=== PATIENT | female | born 1995 | race Two or more races ===

== ENCOUNTER 2024-07-25 23:41 | Emergency (ER) | payer OTHER, SELFPAY ==
[2024-07-25 23:42] VITALS: BP 148/98; PULSE 103; RESP 18; TEMP 36.6; O2SAT 98; BMI 38.2
--- NOTE | 2024-07-25 23:55 | ED_ITS ---
Discharge Plan Disposition Patient Disposition: Home, Self-Care Activity Restrictions/Add. Instructions Additional Instructions/Restrictions: Please follow-up with your [facility] and or consider returning here or going to another ER if you change your mind about wanting further evaluation. Please return to the emergency department if you develop any new or worsening symptoms or become concerned for your health. Clinical Impressions Clinical Impression: Left lower quadrant pain Instructions Patient Instructions: DI for Acute Abdominal Pain Print Language Print Language: Arabic Discharge ED Provider: Can Garcia Adult HPI General Chief complaint: Abdominal Pain Stated complaint: Abd pain Time Seen by Provider: 07/25/24 23:47 Mode of Arrival: Wheelchair Source of Information: Patient Limitations: No Limitations Description of Symptoms (Recalled from ER Triage Doc. by RN): Patient states she has been having LLQ abd pain since this morning, which is getting worse. States she took perc 10 around 7pm. States she has PCOS, Endometriosis. Also states she was dx with intermediate torsion x2 weeks ago. She is unsure of where she was diagnosed because she moved here from [place]. History of Present Illness HPI narrative: 28-year-old female with reported history of prior ovarian torsion, PCOS, endometriosis, Lara-Danlos syndrome, possible inflammatory bowel condition, dissociative identity disorder presents for left lower quadrant pain. She reports that it started this morning and is severe. It was not improved with Tylenol and Percocet 10 at home this evening. She reports that she has had torsion within the last few weeks but she does not member exactly when it happened. She also reports that she does not remember where the surgery happened, nor who the operating surgeon was. After some extended discussion, patient reports that she has dissociative identity disorder and she does not remember a lot of her medical care because she dissociates when she gets ill. Related Data Allergies Allergy/AdvReac Type Severity Reaction Status Date / Time adhesive Allergy Blister Verified 07/25/24 23:55 amoxicillin (From Augmentin) Allergy Rash Verified 07/25/24 23:55 clavulanic acid (From Allergy Rash Verified 07/25/24 23:55 Augmentin) diphenhydramine (From Allergy Rash Verified 07/25/24 23:55 Benadryl) Penicillins Allergy Rash Verified 07/25/24 23:[address] [facility] Disclaimer: The information contained in this section may have been updated after the patient was seen, as this information can be updated by other users. Social History Smoking Status: Never smoker alcohol intake: never current occupational status: other details: Unknown Travel in the last 8 weeks: None ROS Obtained: Yes All systems reviewed & no additional complaints except as documented Physical Exam General General appearance: alert, anxious and obese Head Head exam: atraumatic and normocephalic Eye Eye exam: Present normal appearance, PERRL and EOMI ENT ENT exam: Present normal oropharynx and normal external ear exam Neck Neck exam: Present normal inspection and full ROM Chest Chest inspection: Present normal inspection and symmetric chest wall rise; Absent tenderness Respiratory Respiratory exam: Present normal lung sounds bilaterally; Absent respiratory distress Cardiovascular Cardiovascular exam: Present regular rate and normal rhythm Abdominal Exam Abdominal exam: Present soft and tenderness (Right lower quadrant/pelvic); Absent distention or guarding Extremities Exam Extremities exam: Present normal inspection; Absent edema or joint swelling Back Exam Back exam: Present normal inspection; Absent tenderness Neurological Exam Neurological exam: Present alert and oriented X3; Absent motor sensory deficit Psychiatric Psychiatric exam: Present normal affect and normal mood Skin Skin exam: Present warm, dry and normal color Lymphatic Lymphatic Findings: no adenopathy Medical Decision Making Medical Records Medical records reviewed: Yes I reviewed the patient's medical records. Screening: Per USPSTF and CDC recommendations, given the prevalence of disease in our region, it is our hospital?s policy to screen for HIV and viral Hepatitis for all patients aged 18 and over and those with ongoing risk factors. Rob Inquiry Pt receiving controlled substance: No Rob was queried for this patient: No Vital Signs: 07/25/24 23:42 07/26/24 01:41 07/26/24 02:02 Temperature 97.9 F Temperature Source Oral Pulse Rate 104 H 110 H Pulse Rate [Right Radial] 103 H Respiratory Rate 18 Blood Pressure 166/90 H 168/95 H Blood Pressure [Right Arm] 148/98 H Blood Pressure Mean 115 108 Blood Pressure Mean [Right Arm] 114 Blood Pressure Source [Right Arm] Automatic Cuff Blood Pressure Position [Right Arm] Supine 02 Sat by Pulse Oximetry 98 99 96 Oxygen Delivery Method Room Air Lab Data Lab results reviewed: Yes I reviewed the patient's lab results. Lab Results 07/26/24 00:59: Urine Color Yellow, Urine Appearance Clear, Urine pH 6.0, Ur Specific [place] 1.025, Urine Protein Negative, Urine Glucose (UA) 3+, Urine Ketones Trace, Urine Blood 1+ A, Urine Nitrate Negative, Urine Bilirubin Negative, Urine Urobilinogen 0.2, Ur Leukocyte Esterase Negative, Urine RBC 5- 10, Urine WBC 3-5, Ur Squamous Epith Cells 5-10, Urine Bacteria 1+, Urine HCG, Qual Negative 07/26/24 01:41: WBC 8.2, RBC 4.99, Hgb 13.9, Hct 41.3, MCV 82.8, MCH 27.9, MCHC 33.7, RDW 12.4, Plt Count 233, MPV 11.5 H, Neut % (Auto) 56.5, Lymph % (Auto) 31.3, [place] % (Auto) 5.3, Eos % (Auto) 5.9, Baso % (Auto) 0.6, Neut # (Auto) 4.6, Lymph # (Auto) 2.6, [place] # (Auto) 0.4, Eos # (Auto) 0.5 H, Baso # (Auto) 0.1, Sodium 139, Potassium 4.2, Chloride 102, Carbon Dioxide 24, Anion Gap 17.2 H, BUN 10, Creatinine 0.30 L, Estimated Creat Clear 456 H, Estimated GFR 263, Est GFR ( Amer) 318, Glucose 361 H, Calcium 9.9, Total Bilirubin 0.4, AST 35, ALT 55, Alkaline Phosphatase 128 H, Total Protein 8.3 H, Albumin 4.9, Globulin 3.4 H, Albumin/Globulin Ratio 1.4, Serum HCG, Qual Negative 07/26/24 01:41 07/26/24 01:41 Orders (Tests/Meds): ED MEDICATIONS Generic Name Dose Route Start Last Admin Trade Name Freq PRN Reason Stop Dose Admin Methocarbamol 750 mg 07/26/24 04:26 Methocarbamol 500mg Tablet PO 07/26/24 04:27 ONCE ONE Sodium Chloride 10 ml 07/26/24 03:16 07/26/24 03:17 Sodium Chloride 0.9% 10ml Syr (Rad Only) IV 08/25/24 03:15 10 ml NEEDED PRN Administration Maintain IV Site Discontinued Medications Generic Name Dose Route Start Last Admin Trade Name Freq PRN Reason Stop Dose Admin Acetaminophen 1,000 mg 07/26/24 00:12 07/26/24 00:47 Acetaminophen 500mg Tab PO 07/26/24 00:13 1,000 mg ONCE ONE Administration Hydromorphone HCl 1 mg 07/26/24 01:50 07/26/24 01:52 Hydromorphone 2mg/Ml Syringe IV 07/26/24 01:51 1 mg ONCE ONE Administration Hydromorphone HCl 0.5 mg 07/26/24 02:54 07/26/24 02:59 Hydromorphone 2mg/Ml Syringe IV 07/26/24 02:55 0.5 mg ONCE ONE Administration Iopamidol 75 ml 07/26/24 03:16 07/26/24 03:17 Iopamidol-370 (76%);100ml Bottle IV 07/26/24 03:17 75 ml ONCE ONE Administration Ketorolac Tromethamine 30 mg 07/26/24 00:12 07/26/24 00:55 Ketorolac 30mg/Ml Vial IV 07/26/24 00:13 30 mg ONCE ONE Administration Morphine Sulfate 4 mg 07/26/24 00:12 07/26/24 00:55 Morphine 4mg/Ml Syringe IV 07/26/24 00:13 4 mg ONCE ONE Administration Ondansetron HCl 4 mg 07/26/24 01:50 07/26/24 01:52 Ondansetron 4mg/2ml Vial IV 07/26/24 01:51 4 mg ONCE ONE Administration Ondansetron HCl 4 mg 07/26/24 02:54 07/26/24 02:59 Ondansetron 4mg/2ml Vial IV 07/26/24 02:55 4 mg ONCE ONE Administration Promethazine HCl 25 mg 07/26/24 02:41 07/26/24 02:47 Promethazine Hcl 25mg/Ml 1ml Vial IV 07/26/24 02:42 Not Given ONCE ONE Sodium Chloride 25 ml 07/26/24 02:41 07/26/24 02:47 Sodium Chloride 0.9% 25ml Bag IV 07/26/24 02:42 Not Given ONCE ONE ORDERS Category Date Time Status CT abdomen pelvis w con Stat Cat Scan 07/26/24 02:41 Completed POCUS Point of Care (ER Only) Stat Exams 07/26/24 00:40 Completed US transvaginal Stat Exams 07/26/24 00:11 Completed CBC w/Auto Diff [Complete Blood Count Auto Diff] Stat Lab 07/26/24 01:41 Completed CMP [Comprehensive Metabolic Panel] Stat Lab 07/26/24 01:41 Completed Serum Beta HCG [HCG Qualitative, Serum] Stat Lab 07/26/24 01:41 Completed UA [Urinalysis and Microscopic] Stat Lab 07/26/24 00:59 Completed Urine , HCG Qual. Stat Lab 07/26/24 00:59 Completed Medical Decision Narrative: 28-year-old female with reported history of prior ovarian torsion, PCOS, endometriosis, Lara-Danlos syndrome, possible inflammatory bowel condition, dissociative identity disorder presents for left lower quadrant pain. History was obtained via interactive discussion with patient. On arrival, patient is [afebrile, hemodynamically stable, satting appropriately, alert, oriented x4, GCS 15], moving all extremities spontaneously. Full physical exam performed and significant for left lower quadrant tenderness. Differential includes but is not limited to ovarian torsion, endometriosis, kidney stone, pyelonephritis, colonic pathology Patient was given multiple doses of opiates as well as Tylenol and Toradol for symptomatic management and correction of underlying abnormalities. Workup initiated including emergent transvaginal ultrasound to assess for torsion, blood work, urine studies, as well as CT abdomen pelvis. Transvaginal ultrasound showed normal morphologic appearance of the ovary but they were not able to find any flow. Patient had a syncopal episode secondary to pain while obtain the ultrasound. Given the lack of flow, I called and spoke with Dr. Wellington on-call regarding possible torsion. Given the patient's reported recent surgery with very confusing history and timeline, as well as the normal appearance of the ovary on ultrasound, is not clear to Dr. Adrian that there is a acute torsion going on at this time and he recommended obtaining CT. CT was interpreted by me and showed no evidence of acute pathology such as kidney stones, bowel obstruction etc. Laboratory workup independently interpreted by me and significant for negative test, urine with 5-10 squames, 1+ bacteria, only 3-5 WBCs and 5-10 RBCs, nitrate negative. Does not appear consistent with an acute UTI/pyelo at this time. No leukocytosis, no significant electrolyte derangement.. After the patient spoke with Dr. Wellington initially, she reports to me that she does not want him to operate on her regardless of what the issue is. I explained to her that based on my interpretation of the data available, I cannot rule out torsion without laparoscopy. This certainly could be endometriosis or some other pathology, but given the lack of flow on her ultrasound I cannot rule out this serious condition at this time. I clearly and repeatedly recommended that she be transferred to another facility such as [facility] etc. for repeat assessment by obstetrics for consideration of emergency surgery for torsion. Patient reports that at this point she does not wish to be transferred and would prefer to go home and go to another facility if her symptoms worsen or she changes her mind about repeat assessment. Procedures Risk/Benefits of Procedure(s) Were Explained: Yes Critical Care Critical Care Time Critical Care Time: No
--- NOTE | 2024-07-26 00:11 | US_ITS ---
PROCEDURE INFORMATION: Exam: US Duplex Artery and Vein of the Abdominal and/or Reproductive Organs. Complete Ovaries Exam date and time: 07/26/2024 12:54 AM Age: 28 years old Clinical indication: Pelvic pain; Additional info: Left pelvic pain, recent torsion TECHNIQUE: Imaging protocol: Real-time duplex ultrasound scan of the arterial and venous flow with color Doppler flow and spectral waveform analysis with image documentation. Duplex exam was performed to evaluate for torsion and other vascular conditions. Total images: 269 COMPARISON: No relevant prior studies available. FINDINGS: Right ovary/adnexa: Normal arterial and venous Doppler waveforms in the ovary. No ovarian torsion. Left ovary/adnexa: Education Nurse could not obtain arterial or venous flow in the left ovary. IMPRESSION: 1. Education Nurse could not obtain arterial or venous flow in the left ovary, implying torsion. 2. Normal right ovarian arterial and venous vascular flow. PROCEDURE INFORMATION: Exam: US Pelvis, Transvaginal, Non-Obstetric Exam date and time: 07/26/2024 12:54 AM Age: 28 years old Clinical indication: Pelvic pain; Additional info: Left pelvic pain, recent torsion TECHNIQUE: Imaging protocol: Real-time transvaginal pelvic (non-obstetric) ultrasound with image documentation. Transvaginal imaging was used for better evaluation of the endometrium, adnexa, and/or cervix. COMPARISON: No relevant prior studies available. FINDINGS: Uterus: Retroverted uterus measuring 6.9 x 4.1 x 4.1 cm. Nonthickened endometrium at 8 mm. No myometrial mass. Right ovary/adnexa: Right ovary measuring 2.8 x 2.4 x 2.3 cm with volume of 8.1 cc. Dominant right ovarian follicle. Left ovary/adnexa: Left ovary measuring 2.8 x 2.4 x 1.0 cm with volume of 3.6 cc. No discrete ovarian lesions. Intraperitoneal space: No free pelvic fluid. No adnexal mass. IMPRESSION: 1. Retroverted nonenlarged uterus 2. Nonthickened endometrium 3. Morphologically normal nonenlarged ovaries. 4. No free pelvic fluid or adnexal mass.
--- NOTE | 2024-07-26 00:11 | PC.NURSE ---
Called RAD to call in US at this time
[2024-07-26] MEDS: ACETAMINOPHEN 500MG TAB 1000 MG PO (00:47)
--- NOTE | 2024-07-26 00:50 | PC.NURSE ---
at bedside for US IV
[2024-07-26] MEDS: MORPHINE 4MG/ML SYRINGE 4 MG IV (00:55)
[2024-07-26] MEDS: KETOROLAC 30MG/ML VIAL 30 MG IV (00:55)
--- NOTE | 2024-07-26 01:01 | PC.NURSE ---
Patient to US at this time
[2024-07-26 01:02] LABS: Microscopic, Urine URINE MICROSCOPIC (MICROSCOPIC)
[2024-07-26 01:03] LABS: Appearance,Urine CLEAR (Clear); Bilirubin,Urine Negative (Negative); Blood, Urine 1+ (Negative); Color,Urine YELLOW (Yellow); Glucose,Urine (UA) 3+ (Negative); Ketones,Urine TRACE (Negative); Leukocyte Esterase,Urine Negative (Negative); Nitrate,Urine Negative (Negative); Protein,Urine Negative (Negative); Specific Gravity, Urine 1.025 (1.005-1.030); Urobilinogen,Urine 0.2 EU/dl (0.2)
[2024-07-26 01:16] LABS: Bacteria,Urine 1+ /lpf
[2024-07-26 01:21] LABS: Urine Pregnancy, HCG Qual. Negative (Negative)
--- NOTE | 2024-07-26 01:32 | PC.NURSE ---
Pt is back from US
--- NOTE | 2024-07-26 01:35 | PC.NURSE ---
Dr. Wellington will come to visit patient and decide on treatment needed.
--- NOTE | 2024-07-26 01:40 | PC.NURSE ---
Rapid Response called at 0122 by lidar technician to ultrasound Rm 2. Pt states she passed out due to pain. US Tech stated the exam was finished. Pt was A&O*4 when MD Radha and TERESA Dorsey arrived.
[2024-07-26 01:41] VITALS: BP 166/90; PULSE 104; O2SAT 99
[2024-07-26 01:46] LABS: Basophils # 0.1 K/mm3 (0-0.2); Basophils % 0.6 % (0.1-2.0); Eosinophils # 0.5 K/mm3 (0.0-0.4); Eosinophils % 5.9 % (0.1-12.0); Hematocrit 41.3 % (37.0-47.0); Hemoglobin 13.9 g/dL (12.2-16.2); Lymphocytes # 2.6 K/mm3 (0.7-4.5); Lymphocytes % 31.3 % (10-50); Mean Corpuscular HGB Conc 33.7 g/dL (31.8-35.4); Mean Corpuscular Hemoglobin 27.9 pg (27.0-31.2); Mean Corpuscular Volume 82.8 fl (81-99); Mean Platelet Volume 11.5 fl (7.4-10.4); Monocytes # 0.4 K/mm3 (0.1-1.0); Monocytes % 5.3 % (1.7-9.3); Neutrophils # 4.6 K/mm3 (1.8-7.8); Neutrophils % 56.5 % (37.0-80.0); Platelet Count 233 K/mm3 (142-424); Red Blood Count 4.99 M/mm3 (4.20-5.40); Red Cell Distribution Width 12.4 % (11.5-17.5); White Blood Count 8.2 K/mm3 (4.8-10.8)
[2024-07-26] MEDS: HYDROMORPHONE 2MG/ML SYRINGE 1 MG IV (01:52)
[2024-07-26] MEDS: ONDANSETRON 4MG/2ML VIAL 4 MG IV ×2 (01:52→02:59)
[2024-07-26 01:55] LABS: Alanine Aminotransferase 55 U/L (12-78); Albumin Level 4.9 g/dl (3.5-5.0); Albumin/Globulin Ratio 1.4 (1.1-1.8); Alkaline Phosphatase 128 U/L (38-126); Anion Gap 17.2 mEq/L (5-15); Aspartate Amino Transferase 35 U/L (14-36); Bilirubin,Total 0.4 mg/dl (0.2-1.3); Blood Urea Nitrogen 10 mg/dl (7-17); Calcium 9.9 mg/dl (8.4-10.2); Carbon Dioxide 24 mmol/L (22.0-30.0); Chloride 102 mmol/L (98-107); Creatinine Clearance Estimated 456 mL/min (50-200); Estimated Glomerular Filt Rate 263 ml/min (>60); GFR (African American) 318 ML/MIN (>60); Globulin 3.4 g/dL (1.3-3.2); Glucose 361 mg/dl (74-100); Potassium 4.2 mmoL/L (3.5-5.1); Sodium 139 mmol/L (136-145); Total Protein,Serum 8.3 g/dl (6.3-8.2)
[2024-07-26 02:02] VITALS: BP 168/95; PULSE 110; O2SAT 96
[2024-07-26 02:04] LABS: HCG Qualitative, Serum Negative (Negative)
--- NOTE | 2024-07-26 02:41 | CT_ITS ---
PROCEDURE INFORMATION: Exam: CT Abdomen And Pelvis With Contrast Exam date and time: 07/26/2024 3:15 AM Age: 28 years old Clinical indication: Abdominal pain; Flank; Left; Additional info: Left pelvic pain TECHNIQUE: Imaging protocol: Computed tomography of the abdomen and pelvis with contrast. Radiation optimization: All CT scans at this facility use at least one of these dose optimization techniques: automated exposure control; mA and/or kV adjustment per patient size (includes targeted exams where dose is matched to clinical indication); or iterative reconstruction. Contrast material: ISOVUE; Contrast volume: 75 ml; Contrast route: IV; COMPARISON: US TRANSVAGINAL 07/26/2024 12:54 AM FINDINGS: Liver: Normal. No mass. Gallbladder and biliary ducts: Normal. No calcified stones. No ductal dilation. Pancreas: Normal. No ductal dilation. Spleen: Normal. No splenomegaly. Adrenal glands: Normal. No mass. Kidneys and ureters: Normal. No hydronephrosis. Stomach and bowel: Unremarkable. No obstruction. No mucosal thickening. Appendix: No evidence of appendicitis. Intraperitoneal space: Unremarkable. No free air. No significant fluid collection. Vasculature: Unremarkable. No abdominal aortic aneurysm. Lymph nodes: Unremarkable. No enlarged lymph nodes. Urinary bladder: Unremarkable as visualized. Reproductive: Unremarkable as visualized. Bones/joints: Unremarkable. No acute fracture. Soft tissues: Unremarkable. IMPRESSION: No acute findings.
[2024-07-26] MEDS: HYDROMORPHONE 2MG/ML SYRINGE 0.5 MG IV (02:59)
[2024-07-26] MEDS: SODIUM CHLORIDE 0.9% 10ML SYR (RAD ONLY) 10 ML IV (03:17)
[2024-07-26] MEDS: IOPAMIDOL-370 (76%);100ML BOTTLE 75 ML IV (03:17)
--- NOTE | 2024-07-26 03:24 | PC.NURSE ---
Called in [facility] to confirm that the pt uses this hospital for care. the janitorial supervisor at [facility] called me back, they are going to fax records over to me at this time.
--- NOTE | 2024-07-26 04:11 | EXP.GYN.CONS ---
History of Present Illness *Admission Date: 07/26/24 *Reason for visit:: Left lower quadrant pain, history of recent surgery, history of endometrios *History of present illness: She is a 28-year-old 4 para 0 lady who complains of onset of left lower quadrant pain. Patient states she has been having LLQ abd pain since this morning, which is getting worse. States she took Percocet 10 around 7pm. States she has PCOS, Endometriosis. Also states she was dx with intermediate torsion x2 weeks ago. She says that she did not know where she went to have the surgery done. Her boyfriend was with her and did not know either. She says she went by ambulance to a hospital but she does not know what hospital she was taken to. She had laparoscopic surgery with a robot and she said that her tube was twisted. She was not quite sure of the exact surgery that she had done or where it was done. She says that she has Lara-Danlos syndrome and has a history of breast cancer. She says she has a history of endometriosis and has had a number of surgeries. She has had a previous appendectomy. She has had [address] [facility] Disclaimer: The information contained in this section may have been updated after the patient was seen, as this information can be updated by other users. Social History Smoking Status: Never smoker alcohol intake: never current occupational status: other details: Unknown Travel in the last 8 weeks: None Review of Systems Review of Systems Review of systems:: pertinent systems reviewed and negative unless documented below Meds Home Medications and Allergies New Prescriptions to Start Prescriptions: Allergies Allergy/AdvReac Type Severity Reaction Status Date / Time adhesive Allergy Blister Verified 07/25/24 23:55 amoxicillin (From Augmentin) Allergy Rash Verified 07/25/24 23:55 clavulanic acid (From Allergy Rash Verified 07/25/24 23:55 Augmentin) diphenhydramine (From Allergy Rash Verified 07/25/24 23:55 Benadryl) Penicillins Allergy Rash Verified 07/25/24 23:55 Exam (Inpt) Vital signs and Labs for Last 24 Hours: Temp Pulse Resp BP Pulse Ox O2 Del Method 97.9 F 110 H 18 168/95 H 96 Room Air 07/25/24 23:42 07/26/24 02:02 07/25/24 23:42 07/26/24 02:02 07/26/24 02:02 07/25/24 23:42 Laboratory Results - last 24 hr 07/26/24 00:59: Urine Color Yellow, Urine Appearance Clear, Urine pH 6.0, Ur Specific [employer] 1.025, Urine Protein Negative, Urine Glucose (UA) 3+, Urine Ketones Trace, Urine Blood 1+ A, Urine Nitrate Negative, Urine Bilirubin Negative, Urine Urobilinogen 0.2, Ur Leukocyte Esterase Negative, Urine RBC 5-10, Urine WBC 3-5, Ur Squamous Epith Cells 5-10, Urine Bacteria 1+, Urine HCG, Qual Negative 07/26/24 01:41: WBC 8.2, RBC 4.99, Hgb 13.9, Hct 41.3, MCV 82.8, MCH 27.9, MCHC 33.7, RDW 12.4, Plt Count 233, MPV 11.5 H, Neut % (Auto) 56.5, Lymph % (Auto) 31.3, [place] % (Auto) 5.3, Eos % (Auto) 5.9, Baso % (Auto) 0.6, Neut # (Auto) 4.6, Lymph # (Auto) 2.6, [place] # (Auto) 0.4, Eos # (Auto) 0.5 H, Baso # (Auto) 0.1, Sodium 139, Potassium 4.2, Chloride 102, Carbon Dioxide 24, Anion Gap 17.2 H, BUN 10, Creatinine 0.30 L, Estimated Creat Clear 456 H, Estimated GFR 263, Est GFR ( Amer) 318, Glucose 361 H, Calcium 9.9, Total Bilirubin 0.4, AST 35, ALT 55, Alkaline Phosphatase 128 H, Total Protein 8.3 H, Albumin 4.9, Globulin 3.4 H, Albumin/Globulin Ratio 1.4, Serum HCG, Qual Negative I & O for Labs for Last 24 Hours: Intake & Output 07/23/24 07/24/24 07/25/24 07/26/24 11:59 11:59 11:59 11:59 Weight 230 lb HEENT Head: Present normocephalic Neck: Present normal inspection and full ROM Respiratory: Present normal respiratory effort and able to speak in complete sentences; Absent accessory muscle use Assessment and Plan *Assessment and plan (1) Left lower quadrant pain: Status: Acute Category: Medical Code(s): R10.32 - Left lower quadrant pain (2) History of endometriosis: Status: Acute Category: Medical Code(s): Z87.42 - Personal history of other diseases of the female genital tract Plan I reviewed her ultrasound and while there did not seem to be much flow to the ovary but it did not look enlarged or abnormal. There were no cysts. It was not clear if there was any torsion at this point in time. There was no free fluid in the pelvis. The patient eventually determined that she went to [facility]. We attempted to get records from there. The patient however refused to sign her consents because she did not want me to treat her any further. I went back to see the patient and she said that I did not have a conversation with her when I first met her. She therefore did not want me to treat her. I did apologize to her that we somehow got off on the wrong foot. I did tell her that I did think that she did not need emergency surgery at this point in time given her ultrasound and CT findings as well as her long history of endometriosis, pelvic pain and recent surgery. She had mentioned before that she thought she might need a hysterectomy given her history and I told her that that was certainly a possibility. In the end she did not want me to continue medical care for her. She said she was just going to go home.
[2024-07-26] MEDS: METHOCARBAMOL 500MG TABLET 750 MG PO (04:27)
[2024-07-26 04:39] VITALS: BP 127/93; PULSE 84; RESP 18; TEMP 37; O2SAT 99
== END 2024-07-26 04:52 | disposition home or self-care (01) ==
PROVIDERS: Emergency Provider Emergency Medicine
DX: R10.32 Left lower quadrant pain (principal); Z87.42 Personal history of other diseases of the female genital tract
CPT/HCPCS: 36415; 74177; 76830; 80053; 81001; 81025; 84703; 85025; 96374; 96375; 99285; J1171; J1885; J2270; J2405; Q9967